=== PATIENT | female | born 1950 | race Caucasian/White ===

== ENCOUNTER 2019-10-26 23:48 | Emergency (ER) | payer SELFPAY ==
[~2019-10-26] VITALS: Ht 157.5 cm; Wt 47.6 kg
[2019-10-26 23:48] VITALS: BP 143/83
--- NOTE | 2019-10-26 23:48 | NUR ---
PT AMBULATED FROM [facility] TO BED 7.
--- NOTE | 2019-10-27 00:07 | NUR ---
PATIENT ASSESSMENT COMPLETED FOR NEAR SYNCOPE AT HOME. SEE ASSESSMENT NOTES. PATIENT SITTING UP IN BED. BED LOW LOCKED, WITH 1 SIDE RAIL UP. DAUGHTER AT BEDSIDE.
[2019-10-27] MEDS ORDERED: NACL 0.9% 500 ML IV SCH (00:21)
--- NOTE | 2019-10-27 00:56 | NUR ---
ERMD EVALUATING PATIENT AT BEDSIDE.
[2019-10-27 01:07] LABS: APPEARANCE,URINE CLEAR (CLEAR); BILIRUBIN,URINE NEGATIVE (NEGATIVE); BLOOD, URINE TRACE-I (NEGATIVE); COLOR,URINE YELLOW (YELLOW); LEUKOCYTE ESTERASE ,URINE TRACE (NEGATIVE); NITRITE, URINE NEGATIVE (NEGATIVE); UGLUCOSE NEGATIVE (NEGATIVE)
[2019-10-27 01:13] LABS: BASOPHILS % (AUTO) 0.4 % (0.0-2.0); EOSINOPHILS # (AUTO) 0.3 K/uL (0-0.4); EOSINOPHILS % (AUTO) 4.9 % (0.0-4.0); HEMATOCRIT 41.8 % (36-48); HEMOGLOBIN 14.2 g/dL (12.0-16.0); LYMPHOCYTES # (AUTO) 1.8 K/uL (2.5-16.5); MEAN CORPUSCULAR HEMOGLOBIN 31 pg (27-31); MEAN CORPUSCULAR HGB CONC 34 g/dL (33-37); MEAN CORPUSCULAR VOLUME 91.2 fL (80-94); MONOCYTES # (AUTO) 0.4 K/uL (0.8-1.0); MONOCYTES % (AUTO) 6.7 % (1.7-9.3); NEUTROPHILS # (AUTO) 3.5 K/uL (1.8-7.7); PLATELET COUNT (AUTO) 254 K/uL (140-450); RED BLOOD CELL COUNT(AUTO) 4.58 MIL/uL (4.20-5.40); RED CELL DISTRIBUTION WIDTH 12.4 % (11.6-13.7)
[2019-10-27 01:19] LABS: ANION GAP 14.3 (8-16); CARBON DIOXIDE 23.2 mmol/L (21-32); CREATININE 0.9 mg/dL (0.6-1.3); POTASSIUM 3.5 mmol/L (3.5-5.1)
[2019-10-27 01:22] LABS: RBC,URINE 0-5 /HPF (0-5); WBC,URINE 0-5 /HPF (0-5)
[2019-10-27 01:24] LABS: PROTHROMBIN TIME 9.3 secs (10.8-13.4)
[2019-10-27 01:26] LABS: ALBUMIN 3.6 g/dL (3.4-5.0); TOTAL BILIRUBIN 0.2 mg/dL (0.0-1.0)
--- NOTE | 2019-10-27 01:44 | NUR ---
PATIENT AMBULATED TO THE RESTROOM.
--- NOTE | 2019-10-27 01:50 | NUR ---
PATIENT AMBULATED BACK TO BED 7.
[2019-10-27 02:30] VITALS: BP 128/67
--- NOTE | 2019-10-27 02:30 | NUR ---
Patient discharged with v/s stable. Written and verbal after care instructions given and explained. Patient verbalized understanding. Ambulatory with to home. All questions addressed prior to discharge. Advised to follow up with PMD.
== END 2019-10-27 02:30 | disposition home or self-care (01) ==
LOC: MED 23:48
DX: R11.2 Nausea with vomiting, unspecified (principal); I10 Essential (primary) hypertension; R42 Dizziness and giddiness
CPT/HCPCS: 36415; 71045; 80053; 81001; 83605; 83880; 84484; 85025; 85610; 85730; 87040; 87086; 93005; 96360; 99284; J7030; Q0092